=== PATIENT | male | born 1970 | race African-American/Black ===

== ENCOUNTER 2024-12-25 09:33 | Inpatient (IN) | payer OTHER ==
[2024-12-25] MEDS ORDERED: BENZOCAINE/MENTHOL (CHLORASEPTIC ) LOZENGE MM PRN (10:12)
[2024-12-25] MEDS ORDERED: IBUPROFEN 600 MG TABLET (FP) PO PRN (10:12)
[2024-12-25] MEDS ORDERED: ACETAMINOPHEN 325 MG TABLET (FP) PO PRN (10:12)
[2024-12-25] MEDS ORDERED: NICOTINE POLACRILEX 2 MG GUM BUC PRN (10:12)
[2024-12-25] MEDS ORDERED: IBUPROFEN 400 MG TABLET (FP) PO PRN (10:12)
[2024-12-25] MEDS ORDERED: guaiFENesin 600 MG TABLET.ER (FP) PO PRN (10:12)
[2024-12-25] MEDS ORDERED: NICOTINE POLACRILEX 2 MG LOZENGE BC PRN (10:12)
[2024-12-25] MEDS ORDERED: NALOXONE (NARCAN) HCL 4 MG/0.1 ML SPRAY NS PRN (10:12)
[2024-12-25] MEDS ORDERED: BENZONATATE 200 MG CAPSULE PO PRN (10:12)
[2024-12-25] MEDS ORDERED: P-EPHED 60MG/TRIPROLIDI 2.5MG TABLET PO PRN (10:12)
[2024-12-25] MEDS ORDERED: LOPERAMIDE HCL 2 MG CAPSULE PO PRN (10:12)
[2024-12-25] MEDS ORDERED: MAGNESIUM HYDROX 2400MG/30ML ORAL SUSPENSION 30 ML CUP PO PRN (10:12)
[2024-12-25] MEDS ORDERED: POLYETHYLENE GLYCOL (HEALTHYLAX) 3350 17 GM PACKET PO PRN (10:12)
[2024-12-25] MEDS ORDERED: MAG HYDROX/AL HYDROX/SIMETH 30 ML UNIT-DOSE CUP PO PRN (10:12)
[2024-12-25 10:15] VITALS: RESP 16; BMI 21.9
[2024-12-25] MEDS: methaDONE HCL 40 MG DISPERSABLE TABLET PO ONE (13:03)
[2024-12-25] MEDS ORDERED: TUBERCULIN PPD 5 TU/0.1ML VIAL ID ONE (14:16)
[2024-12-25] MEDS: TUBERCULIN PPD 5 TU/0.1ML SYRINGE (IN PATIENT USE ONLY) ID ONE (14:17)
[2024-12-25] MEDS: MELATONIN 5 MG TABLETS PO SCH (22:23)
[2024-12-25] MEDS: THIAMINE 100 MG TABLET PO SCH (22:24)
[2024-12-26] MEDS: methaDONE HCL 40 MG DISPERSABLE TABLET PO SCH (05:59)
[2024-12-26] MEDS: PRENATAL VITAMINS W/ FOLIC ACID TABLET (FP) PO SCH (09:50)
[2024-12-26 12:12] LABS: URINE APPEARANCE CLEAR; URINE BILIRUBIN NEGATIVE (NEGATIVE); URINE COLOR YELLOW; URINE GLUCOSE (UA) NEGATIVE (NEGATIVE); URINE KETONE NEGATIVE (NEGATIVE); URINE LEUK ESTERASE NEGATIVE (NEGATIVE); URINE NITRITE NEGATIVE (NEGATIVE); URINE PROTEIN NEGATIVE (NEGATIVE); URINE UROBILINOGEN 0.2 mg/dL (0.2-1.0)
[2024-12-26 12:13] LABS: POTASSIUM 4.6 mmol/L (3.5-5.1)
[2024-12-26 12:14] LABS: HEMATOCRIT 34.2 % (40.1-51.0); HEMOGLOBIN 10.3 g/dL (13.7-17.5); MCHC 30.1 g/dl (32.3-36.5); MEAN CELL VOLUME 93.4 fl (79.0-92.2); MEAN PLT VOLUME 12.7 fl (9.4-12.4); PLATELET COUNT 158 x10^3/uL (163-337); RDW 13.6 % (12.2-16.1)
[2024-12-26 12:21] LABS: ALBUMIN 3.6 g/dl (3.4-5.0); BLOOD UREA NITROGEN 27.1 mg/dL (7-18)
[2024-12-26 12:24] LABS: CREATININE 1.5 mg/dL (0.55-1.3)
[2024-12-26 12:25] LABS: BILIRUBIN,TOTAL 0.5 mg/dL (0.2-1); TOT PROT 6.7 g/dl (6.4-8.2)
[2024-12-26 12:40] LABS: SYPHILIS W/ RPR CONF NON-REACTIVE (NONREACTIVE)
[2024-12-26 13:10] LABS: HCV DIAGNOSTIC IN-HOUSE W/RFLX NON-REACTIVE (NONREACTIVE)
[2024-12-26] MEDS: MIRTAZAPINE 15 MG TABLET (FP) PO SCH (21:48)
[2024-12-27 06:43] VITALS: BP 135/82; PULSE 74; TEMP 97.9
== END 2024-12-27 13:40 | disposition home or self-care (01) | DRG 772 ==
LOC: YASAS 09:33 → Y5N 11:12
PROVIDERS: ADMIT Psychiatry & Neurology Pain Medicine; ATTEND Psychiatry & Neurology Pain Medicine
PROC: HZ42ZZZ Group Counseling for Substance Abuse Treatment, Cognitive-Behavioral (ICD-10-PCS; principal; 2024-12-25)
DX: F14.20 Cocaine dependence, uncomplicated (principal); F11.20 Opioid dependence, uncomplicated; F12.20 Cannabis dependence, uncomplicated; F17.210 Nicotine dependence, cigarettes, uncomplicated; F19.282 Other psychoactive substance dependence with psychoactive substance-induced sleep disorder
CPT/HCPCS: 36415; 80053; 80305; 80307; 81003; 85027; 86780; 86803; 93005; 93010